=== PATIENT | female | born 1985 | race African-American/Black ===

== ENCOUNTER 2024-01-25 08:40 | Emergency (ER) | payer MEDICAID ==
[~2024-01-25] VITALS: Ht 162.6 cm; Wt 61.0 kg
[2024-01-25 08:48] VITALS: O2SAT 100
[2024-01-25 09:17] LABS: CHLORIDE 107 mEq/L (98-107); POTASSIUM 3.8 mEq/L (3.5-5.1); SODIUM 138 mEq/L (136-145)
[2024-01-25 09:18] LABS: BASOPHILS % 0.9 % (0.0-2.0); CALCIUM 9.6 mg/dL (8.7-10.4); CARBON DIOXIDE 27 mEq/L (21-32); EOSINOPHILS % 2.6 % (0.0-5.0); HEMATOCRIT. 40.4 % (36.0-48.0); HEMOGLOBIN. 13.6 g/dL (12.0-16.0); LYMPHOCYTES % 24.8 % (20.0-50.0); MEAN CORPUSCULAR HEMOGLOBIN 31.8 pg (28.0-32.0); MEAN CORPUSCULAR HGB CONC 33.7 g/dL (31.0-37.0); MEAN CORPUSCULAR VOLUME 94.4 fL (81.0-99.0); MEAN PLATELET VOLUME 9.9 fl (7.4-10.4); MONOCYTES % 6.5 % (2.0-8.0); NEUTROPHILS % 65.2 % (40.0-76.0); PLATELET 252 x1000/uL (130-400); RED BLOOD CELL COUNT 4.28 mill/uL (4.2-5.4); WHITE BLOOD COUNT 10.7 x1000/uL (4.5-11.0)
[2024-01-25 09:23] LABS: GLUCOSE 104 mg/dL (70-105); UREA NITROGEN BLOOD 11 mg/dL (9-23)
[2024-01-25 09:25] LABS: ALANINE AMINOTRANSFERASE 8 IU/L (10-49); ALBUMIN 4.9 g/dL (3.2-4.8); ASPARTATE AMINOTRANSFERASE 17 IU/L (<34); B-HCG QUANTITATIVE < 1 mIU/mL (<3); BILIRUBIN DIRECT 0.2 mg/dL (<=3.0); BILIRUBIN TOTAL 0.7 mg/dL (0.1-1.0); PROTEIN TOTAL 8.1 g/dL (6.0-8.3)
[2024-01-25] MEDS: ACETAMINOPHEN 325MG TABLET PO ONE (09:30)
[2024-01-25] MEDS: ONDANSETRON 4MG ODT PO ONE (09:30)
[2024-01-25] MEDS: ONDANSETRON 4MG ODT PO SCH (11:30)
[2024-01-25] MEDS: ACETAMINOPHEN 325MG TABLET PO SCH (11:30)
[2024-01-25 12:05] LABS: CLARITY URINE TURBID (CLEAR); COLOR URINE YELLOW (YELLOW); GLUCOSE URINE NEGATIVE (NEGATIVE); KETONES URINE NEGATIVE (NEGATIVE); LEUKOCYTE ESTERASE URINE 3+ (NEGATIVE); NITRITE URINE POSITIVE (NEGATIVE); OCCULT BLOOD URINE 2+ (NEGATIVE); PH URINE 6.5 (4.5-8.0); PROTEIN URINE 3+ (NEGATIVE)
[2024-01-25 12:23] LABS: BACTERIA URINE 2+; RBC URINE 15-25 /hpf (0-2); SQUAMOUS EPITHELIAL CELL URINE 1+ /lpf (RARE/1+); WBC URINE TNTC /hpf (0-2); YEAST URINE NONE SEEN
[2024-01-25] MEDS ORDERED: CEPH500C2 MT (12:48)
[2024-01-25 13:00] VITALS: BP 138/87; PULSE 79; RESP 16; TEMP 98.4
[2024-01-25] MEDS: CEPHALEXIN 250MG CAPSULE PO ONE (13:00)
== END 2024-01-25 14:06 | disposition home or self-care (01) ==
LOC: ER 08:40
DX: R10.30 Lower abdominal pain, unspecified (principal); R35.0 Frequency of micturition; R30.0 Dysuria; Z98.890 Other specified postprocedural states
CPT/HCPCS: 99283; 80076; 80048; 81003; 84702; 83690; 85025; 87086; 87186; 87077; 36415; Q0162

== ENCOUNTER 2024-02-24 14:52 | Emergency (ER) | payer MEDICAID ==
[~2024-02-24] VITALS: Ht 165.1 cm; Wt 61.0 kg
[~2024-02-24 14:52] MED LIST: CEPH500C2 MT
[2024-02-24 15:30] VITALS: O2SAT 100
[2024-02-24] MEDS ORDERED: NAPR-681 MT (20:31)
[2024-02-24] MEDS: KETOROLAC 15MG/ML VIAL IM ONE (21:12)
[2024-02-24 21:14] VITALS: BP 104/74; PULSE 67; RESP 16; TEMP 36.66960; O2SAT 100
== END 2024-02-24 21:30 | disposition home or self-care (01) ==
LOC: ER 14:52
DX: M79.10 Myalgia, unspecified site (principal); M79.601 Pain in right arm; Z86.73 Personal history of transient ischemic attack (TIA), and cerebral infarction without residual deficits; Z98.890 Other specified postprocedural states
CPT/HCPCS: 99283; 81025; 73080; 96372; J1885

== ENCOUNTER 2024-02-29 10:28 | Emergency (ER) | payer MEDICAID ==
[~2024-02-29] VITALS: Ht 154.9 cm; Wt 59.0 kg
[~2024-02-29 10:28] MED LIST changes: +NAPR-681 MT
[2024-02-29 10:35] VITALS: TEMP 97.6; O2SAT 98
[2024-02-29 11:21] VITALS: BP 108/76; PULSE 72; RESP 16; O2SAT 99
[2024-02-29] MEDS: KETOROLAC 30MG/ML VIAL IM ONE (11:21)
== END 2024-02-29 11:39 | disposition home or self-care (01) ==
LOC: ER 10:28
DX: R07.9 Chest pain, unspecified (principal); Z98.890 Other specified postprocedural states
CPT/HCPCS: 99283; 71045; 93005; 96372; J1885